=== PATIENT | male | born 1995 | race Caucasian/White ===

== ENCOUNTER 2017-06-13 18:58 | Emergency (ER) | payer OTHER ==
[2017-06-13 19:05] VITALS: RESP 16; TEMP 98.4
--- NOTE | 2017-06-13 19:09 | EDPHY ---
HPI/HX/ROS/PE/MDM Narrative: CHIEF COMPLAINT: Right finger laceration HPI: This patient is a 22 year old male presenting with right finger pain secondary to an avulsion injury at work shortly prior to arrival. He was slicing brisket at work and "going too quickly" and caught his finger under the knife. He sliced off the tip of his right index finger. He has no other trauma. No recent illness. No fever, vomiting, shortness of breath, or other associated symptoms. REVIEW OF SYSTEMS: Gen: No fever, no chills PMH: Asthma, environmental allergies. SOCIAL HISTORY: Works at [employer]. Single. Lives in [place] PHYSICAL EXAM: General: Patient is alert, in no acute distress. Right hand: Avulsion to radial aspect of right index finger that does not involve the nail. Neuro: Oriented x3. Normal motor function. Normal sensory function. ED Course: Patient presents with avulsion injury to his right index finger. Plan to clean, dress. There is no tissue remaining to repair. Verbal consent was obtained from the patient. The avulsion on the right index finger was anesthetized using lidocaine and Bupivacaine. The wound was cleaned with standard ED protocol, draped and explored to its base with a gloved finger. There were no deep structures involved. No tendon injury was identified. No nail injury. The tissue has been completely avulsed, and there is no tissue to repair. The avulsion was dressed. The procedure was performed by myself, Dr. Grijalva. Plan to discharge in good condition. Follow up and return precautions discussed. The patient is comfortable with this plan. General Time Seen by Provider: 06/13/17 19:07 Initial Vital Signs: Initial Vital Signs Temperature (C) 36.9 C 06/13/17 19:02 Heart Rate 99 06/13/17 19:02 Respiratory Rate 16 06/13/17 19:02 Blood Pressure 119/71 06/13/17 19:02 O2 Sat (%) 97 06/13/17 19:02 O2 Delivery Mode Room Air Allergies/Adverse Reactions: shellfish derived Allergy (Verified 06/13/17 19:01) Home Medications: Medication Instructions Recorded Claritin 06/13/17 Flonase Allergy Relief 06/13/17 Omeprazole 06/13/17 Departure - Departure Disposition: Home, Routine, Self-Care Clinical Impression: Finger avulsion Qualifiers: Encounter type: initial encounter Qualified Code(s): S61.209A - Unspecified open wound of unspecified finger without damage to nail, initial encounter Condition: Good Instructions: Finger Laceration (ED) Additional Instructions: 1. Keep your dressing on for the next 48 hours. 2. Follow up with a hand specialist for further evaluation or continued concerns. We have referred your to our hand specialist internal controls specialist. 3. Return if you develop increased redness, warmth, or drainage from the area of your injury, or if you develop fever, chills, vomiting, or other worsening of condition. Referrals: [facility] [Other] - As per Instructions Demarco Hwang MD [Medical Doctor] - As per Instructions Report Scribed for: Giuliano Grijalva Report Scribed by: Jennie Fernandes Date of Report: 06/13/17 Time of Report: 19:08
[2017-06-13 20:55] VITALS: BP 127/77; PULSE 71; O2SAT 96
== END 2017-06-13 20:48 | disposition home or self-care (01) ==
DX: S61.200A Unspecified open wound of right index finger without damage to nail, initial encounter (principal); J45.909 Unspecified asthma, uncomplicated; W26.0XXA Contact with knife, initial encounter; Y92.511 Restaurant or cafe as the place of occurrence of the external cause; Y99.0 Civilian activity done for income or pay; Y93.G1 Activity, food preparation and clean up